=== PATIENT | male | born 1965 | race Caucasian/White ===

== ENCOUNTER 2017-11-10 06:47 | Day surgery (SDC) | payer OTHER ==
[~2017-11-10] VITALS: Ht 160 cm; Wt 64.4 kg
[2017-11-10] MEDS ORDERED: CLINDAMYCIN 600 MG in DEXTROSE 5% 50 ML IV SCH (07:45)
[2017-11-10] MEDS ORDERED: CLINDAMYCIN PHOS 600MG/D5W PM 50 ML IV SCH (07:50)
[2017-11-10] MEDS ORDERED: CITA40TA13 PO (08:08)
[2017-11-10] MEDS ORDERED: PROPOFOL 200 MG/20 ML VIAL IV ONE (08:34)
[2017-11-10] MEDS ORDERED: BUPIVACAINE-MPF 0.25% 30 ML VIAL INJ ONE (08:36)
[2017-11-10] MEDS ORDERED: LIDOCAINE MPF 1% - **ER/OR** 5 ML ONE (08:36)
[2017-11-10] MEDS ORDERED: fentaNYL 0.05 MG/ML VIAL ONE (08:39)
[2017-11-10] MEDS ORDERED: MIDAZOLAM 2 MG/2 ML VIAL ONE (08:39)
[2017-11-10] MEDS ORDERED: HYDROmorphone 1 MG/ML AMP IVP PRN ×2 (08:50→09:50)
[2017-11-10] MEDS ORDERED: ONDANSETRON 4 MG/2 ML VIAL IVP PRN (08:50)
[2017-11-10] MEDS ORDERED: ONDANSETRON 4 MG/2 ML VIAL IV PRN (09:50)
[2017-11-10] MEDS ORDERED: MORPHINE SULFATE 4 MG/ML SYR IV PRN (09:50)
[2017-11-10] MEDS ORDERED: MORPHINE SULFATE 2 MG/ML SYR IVP PRN (09:50)
[2017-11-10] MEDS ORDERED: HYDROcodone/APAP 5/325 MG 1 TAB TAB PO PRN (09:50)
[2017-11-10] MEDS ORDERED: ACETAMINOPHEN 325 MG TAB PO PRN (09:50)
== END 2017-11-10 10:45 | disposition home or self-care (01) ==
LOC: MMU 06:47 → MDS 06:47
PROVIDERS: ATTEND Surgery
DX: R59.0 Localized enlarged lymph nodes (principal); F41.9 Anxiety disorder, unspecified; M19.90 Unspecified osteoarthritis, unspecified site; F32.9 Major depressive disorder, single episode, unspecified; E66.9 Obesity, unspecified; I12.9 Hypertensive chronic kidney disease with stage 1 through stage 4 chronic kidney disease, or unspecified chronic kidney disease; N18.9 Chronic kidney disease, unspecified; I25.119 Atherosclerotic heart disease of native coronary artery with unspecified angina pectoris; E11.22 Type 2 diabetes mellitus with diabetic chronic kidney disease; I63.9 Cerebral infarction, unspecified; G47.33 Obstructive sleep apnea (adult) (pediatric); D69.6 Thrombocytopenia, unspecified; K21.9 Gastro-esophageal reflux disease without esophagitis; D64.9 Anemia, unspecified; J45.909 Unspecified asthma, uncomplicated; E04.9 Nontoxic goiter, unspecified; F17.210 Nicotine dependence, cigarettes, uncomplicated; Z79.899 Other long term (current) drug therapy
CPT/HCPCS: 38525; 71045; 93005; J2001; J2250; J2704; J3010; J3490; J7120

== ENCOUNTER 2017-12-27 12:49 | Inpatient (IN) | payer OTHER ==
[~2017-12-27] VITALS: Ht 167.6 cm; Wt 54.4 kg
--- NOTE | 2017-12-27 00:30 | NUR ---
V/S FOLLOWS T 100.2 P 102 R 20 B/P 112/67 O2 93 ON R/A
[~2017-12-27 12:49] MED LIST: CITA40TA13 PO
--- NOTE | 2017-12-27 12:49 | NUR ---
Patient BIBA BLS, transferred to bed 1. RN evaluating patient at bedside.
[2017-12-27 12:50] VITALS: BP 132/80
--- NOTE | 2017-12-27 12:52 | NUR ---
52 yo m biba w/ c/o generalized body "rash"/scabbing x 2.5 weeks. Scabbing noted to bilateral legs and arms. skin is very tight/taunt. pt denies any other symptoms. denies drug use. reports the rash/scabs are itchy. Per EMS report, pt came from home and was sitting in front of his house. EMS reports that they saw small, black bugs crawling on pt skin. pt aaox4. gcs 15. cms intact. rr even and unlabored. lungs bilaterally clear. abd soft, non-tender. er md notified. pt needs met. safety precautions in place. will continue to monitor.
[2017-12-27] MEDS ORDERED: NACL 0.9% 1,000 ML IV ONE (13:00)
[2017-12-27 13:33] LABS: HEMATOCRIT 35.9 % (36-52); MEAN CORPUSCULAR HEMOGLOBIN 29 pg (27-31); MEAN CORPUSCULAR HGB CONC 33 g/dL (33-37); MEAN CORPUSCULAR VOLUME 85.7 fL (80-94); PLATELET COUNT (AUTO) 125 K/uL (140-450); RED BLOOD CELL COUNT(AUTO) 4.19 MIL/uL (4.20-6.10); RED CELL DISTRIBUTION WIDTH 16.8 % (11.6-13.7); WHITE BLOOD COUNT (AUTO) 10.2 K/uL (4.8-10.8)
[2017-12-27 13:43] LABS: ANION GAP 14.6 (8-16); BASOPHILS % (MANUAL) 0 % (0-2); CARBON DIOXIDE 24.4 mmol/L (21-32); CHLORIDE 95 mmol/L (98-107); CREATININE 1.2 mg/dL (0.7-1.3); EOSINOPHILS % (MANUAL) 0 % (0-4); GFR ARICAN-AMERICAN 81 mL/min (>90); GLUCOSE 80 mg/dL (74-106); LYMPHOCYTES % (MANUAL) 1 % (20-46); METAMYELOCYTES % 1 % (0-0); MONOCYTES % (MANUAL) 9 % (5-12); SODIUM SERUM 129 mmol/L (136-145); UREA NITROGEN, BLOOD 35 mg/dL (7-18)
[2017-12-27 13:49] LABS: ASPARTATE AMINOTRANSFERASE 61 U/L (15-37); TOTAL BILIRUBIN 1.3 mg/dL (0.0-1.0)
--- NOTE | 2017-12-27 13:50 | NUR ---
pt encouraged to use the urinal at this time to collect urine specimen. Pt reports that he willl provide sample at this time. will re-evaluate.
[2017-12-27 13:54] LABS: ALBUMIN 1.7 g/dL (3.4-5.0)
[2017-12-27] MEDS ORDERED: ONDANSETRON 4 MG/2 ML VIAL IVP PRN (14:20)
[2017-12-27] MEDS ORDERED: ACETAMINOPHEN 325 MG TAB PO PRN (14:20)
[2017-12-27] MEDS ORDERED: TRAM50TA1 PO (14:26)
--- NOTE | 2017-12-27 14:30 | NUR ---
pt lying in hospital [facility] at this time. vss. rr even and unlabored. safety precautions in place. pt still has not provided urine at this time. er md notified. pt needs met. will continue to monitor.
[2017-12-27] MEDS ORDERED: traMADol 50 MG TAB PO PRN (15:10)
[2017-12-27] MEDS: NACL 0.9% 1,000 ML IV SCH (15:20)
--- NOTE | 2017-12-27 15:20 | NUR ---
Patient will be admitted to care of [facility]. Admited to Med-surg. Will go to room 117. Belongings list completed. Report to JE Weaver.
--- NOTE | 2017-12-27 15:30 | NUR ---
PATIENT BROUGHT TO UNIT VIA GURNEY FROM THE ER. RECEIVED BEDSIDE REPORT. NEEDED TO HELP TRANSFER PATIENT FROM GURNEY TO BED. PATIENT IS AAOX4, NO SIGNS AND SYMPTOMS OF ACUTE DISTRESS NOTED AT THIS TIME. HAS MULTIPLE LESIONS ALL OVER HIS BODY. HAS IV TO THE RIGHT WRIST 22G, SALINE LOCK AT THIS TIME. ORIENTED PATIENT TO THE ROOM, EXPLAINED CALL LIGHT. PATIENT VERBALIZED UNDERSTANDING. WILL FOLLOW THROUGH WITH ADMIT ORDERS. WILL CONTINUE TO MONITOR. BED IN LOWEST POSITION, SIDE RAILS UP X2, CALL LIGHT WITHIN REACH.
[2017-12-27 16:00] VITALS: BP 127/80
--- NOTE | 2017-12-27 16:55 | NUR ---
PATIENT TAKEN TO GET A CT DONE.
--- NOTE | 2017-12-27 17:20 | NUR ---
PATIENT BACK FROM CT.
--- NOTE | 2017-12-27 19:30 | NUR ---
RECEIVED REPORT FROM CRISS WOOTEN DAYSHIFT NURSE FOR CONTINUITY OF CARE. PT ON CONTACT PRECAUTIONS DUE TO BODY RASH. PT SITTING UP IN LOW BED, WITH CALL GARDNER IN REACH. PT IS AOX2 . HE HAS MULTIPLE SMALL OPEN AND CLOSED SCABS ALL OVER HIS BODY. HE HAS 2 IV SITES 1 IN LEFT HAND AT 22G AND ONE IN LEFT AC AT 18 GAUGE. WHICH IS SALINE LOCKED. IV SITE ON LEFT HAND WHICH IS RUNNING NACL AT 75MLS AN HOUR. SITE FLUSHED PATENT. FAMILY AT BEDSIDE. DAUGHTER REQUESTS SS INVOLVED IN HER FATHER'S LIVING SITUATION, SHE ALSO WOULD LIKE THE PAPERWORK FOR POA OVER HER FATHER.
--- NOTE | 2017-12-27 19:30 | NUR ---
ENDORSED PATIENT TO SCAN COORDINATOR RN FOR CONTINUITY OF CARE. PATIENT IN STABLE CONDITION.
[2017-12-27 20:00] VITALS: BP 111/61
--- NOTE | 2017-12-27 20:00 | NUR ---
CHEST X- RAY DONE AT BEDSIDE.
[2017-12-27 20:06] LABS: PROTHROMBIN TIME 12.8 secs (10.8-13.4)
--- NOTE | 2017-12-27 20:30 | NUR ---
V/S FOLLOWS T 98.3 P 97 R 20 B/P 111/61 02 97% ON R/A.
[2017-12-27 20:49] LABS: TOTAL BILIRUBIN 1.3 mg/dL (0.0-1.0)
[2017-12-27 20:50] LABS: ALBUMIN 1.8 g/dL (3.4-5.0); BILIRUBIN,DIRECT 0.8 mg/dL (0.0-0.3)
[2017-12-27] MEDS: MORPHINE SULFATE 2 MG/ML SYR IVP PRN (21:14)
--- NOTE | 2017-12-27 21:30 | NUR ---
PT C/O OF ITCHINESS AND PAIN FROM THE RASH. PT RECEIVED PRN MORPHINE IVP 1MG FOR PAIN AND BENADRYL 25 MG P.O FOR ITCHINESS
[2017-12-27] MEDS ORDERED: DOXYCYCLINE 100 MG CAP PO SCH (22:00)
--- NOTE | 2017-12-28 01:30 | NUR ---
PT ABLE TO GIVE CLEAN CATCH SAMPLE OF URINE SAMPLE FOR PENDING TESTS. URINE COLLECTED AND SENT TO LAB
[2017-12-28 02:20] LABS: APPEARANCE,URINE CLEAR (CLEAR); BILIRUBIN,URINE 1+ (NEGATIVE); BLOOD, URINE NEGATIVE (NEGATIVE); COLOR,URINE YELLOW (YELLOW); LEUKOCYTE ESTERASE ,URINE NEGATIVE (NEGATIVE); NITRITE, URINE NEGATIVE (NEGATIVE); UGLUCOSE NEGATIVE (NEGATIVE)
[2017-12-28 02:31] LABS: BARBITURATE, URINE NEG. ng/ml (NEG <=200); BENZODIAZEPINE, URINE NEG. ng/mL (NEG <=200); CANNABINOID, URINE NEG. ng/mL (NEG <=50); COCAINE, URINE NEG. ng/mL (NEG <=300); OPIATE, URINE NEG. ng/mL (NEG <=2000); PHENCYCLIDINE SCREEN,URINE NEG. ng/mL (NEG <=25)
[2017-12-28] MEDS: NACL 0.9% 1,000 ML IV SCH ×3 (04:40→18:00)
--- NOTE | 2017-12-28 05:01 | NUR ---
PT GETTING LAB DRAWS AT BEDSIDE
[2017-12-28 05:23] LABS: RBC,URINE 0-5 (RARE) /HPF (0-5); WBC,URINE 0-5 (RARE) /HPF (0-5)
[2017-12-28 05:51] LABS: HEMATOCRIT 32.8 % (36-52); MEAN CORPUSCULAR HEMOGLOBIN 29 pg (27-31); MEAN CORPUSCULAR HGB CONC 34 g/dL (33-37); MEAN CORPUSCULAR VOLUME 85.1 fL (80-94); PLATELET COUNT (AUTO) 122 K/uL (140-450); RED BLOOD CELL COUNT(AUTO) 3.86 MIL/uL (4.20-6.10); RED CELL DISTRIBUTION WIDTH 16.9 % (11.6-13.7); WHITE BLOOD COUNT (AUTO) 7.6 K/uL (4.8-10.8)
[2017-12-28] MEDS: MORPHINE SULFATE 2 MG/ML SYR IVP PRN ×2 (06:09→10:15)
--- NOTE | 2017-12-28 06:14 | NUR ---
PT C/O 9/10 PAIN IN STOMACH A ND GENERALIZED BODY PAIN. PT GIVEN PRN MORPHINE IVP. CURRENT V/S T 97.4 P 100 R 20/P 98/61. WILL CONTINUE TO MONITOR RESIDENT FOR EFFECT.
[2017-12-28 06:31] LABS: ALBUMIN 1.3 g/dL (3.4-5.0); ANION GAP 10.9 (8-16); CARBON DIOXIDE 20.2 mmol/L (21-32); CREATININE 0.8 mg/dL (0.7-1.3); POTASSIUM 4.1 mmol/L (3.5-5.1); TOTAL BILIRUBIN 0.9 mg/dL (0.0-1.0)
--- NOTE | 2017-12-28 06:40 | NUR ---
CRITICAL LAB REPORTED BY JASON IN THE LAB BUN [address] 4.8 [address] [facility]ERRING [facility] CALLED X2 REGARDING LAB VALUES OF BUN AND CALCIUM, NO ONE ANSWERED WILL ENDORSE TO NEXT SHIFT TO FOLLOW UP.
[2017-12-28 07:04] LABS: LYMPHOCYTES % (MANUAL) 15 % (20-46); MONOCYTES % (MANUAL) 13 % (5-12)
--- NOTE | 2017-12-28 07:15 | NUR ---
ENDORSED CARE AT BEDSIDE CHANGE OF SHIFT REPORT GIVEN TO SOFIA RN DAYSHIFT NURSE PT IN STABLE CONDITION
--- NOTE | 2017-12-28 07:16 | NUR ---
RECEIVED REPORT FROM PREPARATION SUPERVISOR NURSE. PATIENT LYING DOWN IN BED SLEEPING, AROUSABLE BY VOICE. NO DISTRESS NOTED. PAIN WITHIN TOLERABLE AT THIS TIME. AAOX4, CALM, COOPERATIVE, SKIN COLOR APPROPRIATE TO ETHNICITY, WARM TO TOUCH. HAS MULTIPLE SKIN LESIONS/RASH NOTED THROUGHOUT BODY. LUNGS CTA ON ALL LOBES. ABDOMEN SOFT, NON-DISTENDED. IV SITE INTACT, PATENT, AND INFUSING IVF PER MD ORDERS. REVIEWED PLAN OF CARE WITH PATIENT. PATIENT VERBALIZED UNDERSTANDING. SAFETY MEASURES IN PLACE, CALL LIGHT WITHIN REACH. WILL CONTINUE TO MONITOR.
[2017-12-28 08:00] VITALS: BP 108/61
[2017-12-28] MEDS ORDERED: DOXYCYCLINE 100 MG CAP PO SCH (09:00)
[2017-12-28] MEDS ORDERED: ENOXAPARIN 40 MG/0.4 ML SYR SUBQ SCH (09:00)
--- NOTE | 2017-12-28 09:20 | NUR ---
PATIENT HAS BEEN SCREENED AND CATEGORIZED HIGH NUTRITION RISK. PATIENT WILL BE SEEN WITHIN 1-2 DAYS OF ADMISSION. 12/28/17 12/29/[address]
--- NOTE | 2017-12-28 10:32 | NUR ---
PATIENT SITTING IN BED WITH COMPLAINTS OF GENERALIZED PAIN DUE TO RASHES THROUGHOUT BODY, MORPHINE GIVEN PER MD ORDERS. SCHEDULED ANTIBIOTICS DUE GIVEN. ENOXPARIN NOT GIVEN AT THIS TIME DUE TO LOW PLATELET AND HIGH PTT. WOUND CARE NURSE KEYA AT BEDSIDE PERFORMING EVALUATION. SAFETY MEASURES IN PLACE, CALL LIGHT WITHIN REACH. WILL CONTINUE TO MONITOR.
--- NOTE | 2017-12-28 11:27 | NUR ---
PATIENT CONTINUES TO COMPLAIN OF GENERALIZED PAIN, TRAMADOL PO GIVEN PER MD ORDERS. SAFETY MEASURES IN PLACE, CALL LIGHT WITHIN REACH. WILL CONTINUE TO MONITOR.
--- NOTE | 2017-12-28 11:30 | NUR ---
WOUND CARE EVALUATION NOTES: REASON FOR EVALUATION: MULTIPLE RASHES AND DRY LESIONS SKIN ASSESSMENT DONE ON THIS 52 Y/O MALE PATIENT ADMITTED TO [facility], WITH INITIAL DIAGNOSIS OF GENERAL WEAKNESS. PAST HX INCLUDES DEPRESSION, ANXIETY AND RASHES WITH SELF PICKING BEHAVIOR. ALL ABOVE INFORMATION OBTAINED FROM ADMISSION I&D. LABS ARE WBC 7.6, H/H 11.0/32.8, GLUCOSE 67 AND ALBUMIN 1.3. PATIENT IS AWAKE, ALERT, AND ABLE TO FOLLOW COMMANDS. PT. DENIES OF ITCHINESS, C/O HEADACHE AND FATIGUE AT TIMES BUT NOT NOW. SKIN WARM TO TOUCH, SKIN IS VERY THIN, SKIN TO BONE CONDITION. BLE NO EDEMA, NO HAIR GROWTH AND BILATERAL PEDAL PULSES PRESENT. PLAN OF CARE DISCUSSED WITH PT AND PRIMARY NURSE. PT ABLE TO VERBALIZE UNDERSTANDING. BROTHER AND SISTER VISIT AT BED SIDE AND INFORM OF TREATMENT PLAN WITH AUTHORIZATION BY PATIENT. INTEGUMENTARY: -MULTIPLE RASHES AND DRY LESIONS FROM SCALP TO SOLE INCLUDES GENETIAL AREA WITH LARGEST DRY LESION TO POSTERIOR RIGHT SCAPULA 3X2 CM, THIN DRY LESION OPENED SKIN NOTICED -BILATERAL LE MULTIPLE DARK BROWN SCABS, TERRENCE-SCABS ERYTHEMA, SKIN INTACT -BILATERAL HEELS THIN LAYER OF CALLUS RECOMMENDATIONS: -CONTINUE ISOLATION PRECAUTION -PENDING RPR AND HSV RESULTS -CONTINUE IV/PO ANTIBIOTIC TREATMENT -APPLY HYDRAGUARD TO MULTIPLE RASHES AND DRY LESIONS FROM SCALP TO SOLE (WHOLE BODY) AND PERINEAL BIDWC AND PRN IF SOILING AND LEAVE IT OPEN TO AIR -PAINT BILATERAL LE MULTIPLE DARK BROWN SCABS WITH BETADINE SOLUTION BID AND LEAVE IT OPEN TO AIR. -CONTINUE TO MONITOR TERRENCE-SCABS ERYTHEMA AND REPORT TO MD IF WORSEN CONDITION NOTICE -TURN AND REPOSITION PATIENT Q2H TO LEFT AND RIGHT SIDE ONLY TO OFFLOAD SACRALCOCCYX AND BILATERAL HEELS -ASSESS AND MONITOR SKIN CONDITION DURING POSITION CHANGE, PLEASE PAY ATTENTION TO R/L SCAPULA -OFFLOAD BILATERAL HEELS BY PLACING PILLOWS UNDER CALVES AT ALL TIMES, UNLESS OTHERWISE CONTRAINDICATED -PRESSURE REDISTRIBUTION SURFACE THERAPY RECOMMENDATIONS DISCUSSED WITH PRIMARY RN WILL FOLLOW UP PATIENT Q 7 -10 DAYS AND PRN. PLEASE CONTACT WOUND CARE NURSE FOR ANY QUESTION OR CHANGES IN WOUND CONDITION
--- NOTE | 2017-12-28 11:58 | NUR ---
CM NOTE INITIAL REVIEW FAXED TO [facility] [phone] YAM[place] PH# [phone] [facility] PH# [phone]
[2017-12-28 13:50] LABS: RAPID PLASMA REAGIN NON-REACTIVE (Non Reactiv)
[2017-12-28] MEDS ORDERED: HYDRAGUARD CREAM TP PRN (14:10)
--- NOTE | 2017-12-28 14:54 | NUR ---
DR. HERRING AT BEDSIDE REVIEWING PLAN OF CARE WITH PATIENT. PLAN IS TO TRANSFER PATIENT TO [facility] FOR CHEMOTHERAPY DUE TO LYMPHOMA. SAFETY MEASURES IN PLACE, CALL LIGHT WITHIN REACH. WILL CONTINUE TO MONITOR.
--- NOTE | 2017-12-28 15:16 | NUR ---
CM NOTE RECEIVED ORDER TO TRANSFER TO [facility] FOR CHEMO. PER [facility] NANCY OVALLE, THE ASSIGNED [facility] CM IS [facility] PH# [phone]. FAXED [facility] [phone] THE ORDER AND SPOKE WITH [facility] NANCY ALEJANDRO AND SHE SAID TO GO AHEAD AND FAX ORDER TO [facility] AND I ALSO GAVE [facility] NANCY ALEJANDRO THE NUMBER TO THE NURSING STATION WHERE PATIENT IS IN CASE THE TRANSFER HAPPENS AT A LATER TIME. SPOKE WITH [facility] MASTER IN [place] PH# [phone] WHO SAID TO CONTACT THEIR ADMITTING DEPT IF WE WANT TO TRANSFER A PATIENT. SPOKE WITH [facility] ADMITTING DEPT PH# [phone] AND SHE REQUESTED THE ORDER AND CLINICAL PACKET TO BE FAXED TO THEM. FAXED ORDER AND CLINICAL PACKET TO [facility] FAX# [phone]. I ALSO GAVE [facility] OF [facility] ADMITTING DEPT, THE NUMBER OF THE NURSING STATION WHERE PATIENT IS, THE NUMBER OF DR. HERRING AND DR. QUINONES FOR DOCTOR TO DOCTOR REPORT AND THE NUMBER OF [facility] NANCY ALEJANDRO. [facility] NANCY ALEJANDRO AND CHARGE NURSE FACUNDO CARR
[2017-12-28] MEDS: MORPHINE SULFATE 4 MG/ML SYR IVP PRN ×2 (15:48→19:57)
--- NOTE | 2017-12-28 15:50 | NUR ---
PATIENT COMPLAINS OF GENERALIZED PAIN, MORPHINE GIVEN PER MD ORDERS. SAFETY MEASURES IN PLACE, CALL LIGHT WITHIN REACH. WILL CONTINUE TO MONITOR.
[2017-12-28 16:00] VITALS: BP 114/80
--- NOTE | 2017-12-28 16:02 | NUR ---
IE CALLED AND GAVE AUTHORIZATION NUMBERS FOR TRANSFER. HOSPITAL TRANSFER AUTHORIZATION #: [id number] [facility] AUTHORIZATION #: [id number]. WILL CONTINUE TO MONITOR.
--- NOTE | 2017-12-28 16:05 | NUR ---
12/28/17 RD INITIAL ASSESSMENT COMPLETED PLEASE REFER TO NUTRITION ASSESSMENT UNDER CARE ACTIVITY FOR ESTIMATED NUTRITIONAL NEEDS. CONTINUE REGULAR DIET TOLERATED 2. RECOMMEND STRAWBERRY ENSURE WITH MEALS TID 3. WHEN PO INTAKE MEET OR EXCEED 75%, CONSIDER 2GM SODIUM DIET WITH STRAWBERRY ENSURE WITH MEALS TID 4. IF PT UNABLE TO MAINTAIN ADEQUATE ORAL INTAKE FROM FOOD AND SUPPLEMENTS, RECOMMEND NG TUBE FEED WITH JEVITY 1.2 @ GOAL RATE 70 ML/H AND 150 ML H20 FLUSH Q4D. INITIATE AT 10ML/H AND INCREASE 10ML QH. THIS WILL PROVIDE CALORIES, 93.24 GM PROTIEN, AND 1955 ML FLUID 5. PROVIDED PT AND FAMILY NUTRITION EDUCATION ON CIRRHOSIS AND ENTERAL TUBE FEED 6. RD TO FOLLOW-UP 2-3 DAYS, HIGH RISK BETTINA FLETCHER RD
--- NOTE | 2017-12-28 18:17 | NUR ---
PATIENT LYING IN BED WITH DINNER TRAY IN FRONT. NO DISTRESS NOTED. COMPLAINS OF ITCHING, BENADRYL GIVEN PER ORDERS. CONDITION UNCHANGED. SAFETY MEASURES IN PLACE, CALL LIGHT WITHIN REACH. WILL CONTINUE TO MONITOR
--- NOTE | 2017-12-28 19:27 | NUR ---
GAVE REPORT TO FISH PACKER NURSE FOR CONTINUITY OF CARE. PATIENT IN STABLE CONDITION.
--- NOTE | 2017-12-28 19:28 | NUR ---
REPORT RECEIVED FROM AM SHIFT AT BEDSIDE. PT IN STABLE CONDITION. AAOX4. IV SITE PATENT AND INTACT. LUNGS CLEAR BILATERALLY. SKIN WARM, DRY, NOT INTACT DUE TO RASHES AND LESIONS ALL OVER HIS BODY. BED LOCKED IN LOW POSITION. CALL GARDNER WITHIN REACH.
--- NOTE | 2017-12-28 19:57 | NUR ---
MORPHINE GIVEN FOR PAIN 12/22. PT TOLERATED WELL.
[2017-12-28 20:52] VITALS: BP 95/63
--- NOTE | 2017-12-28 21:40 | NUR ---
CALLED IN REPORT TO [facility] TO THE ONCOLOGY UNIT. SBAR REPORT CALLED INTO HERON WOOTEN FOR CONTINUITY OF CARE.
--- NOTE | 2017-12-28 22:00 | NUR ---
[facility] ARRIVED TO PICK PT UP. PT ABLE TO AMBULATE WITH ASSISTANCE TO THE [facility].
[2017-12-29] MEDS ORDERED: HYDRAGUARD CREAM TP SCH (01:00)
[2017-12-29] MEDS ORDERED: NACL 0.9% IRR 250 ML BOTTLE IR SCH (01:00)
== END 2017-12-28 22:25 | disposition short-term general hospital (02) | DRG 691 ==
LOC: MED 12:49 → MTU 14:18
PROVIDERS: ADMIT Hospitalist; ATTEND Hospitalist
DX: C91.50 Adult T-cell lymphoma/leukemia (HTLV-1-associated) not having achieved remission (principal); E43 Unspecified severe protein-calorie malnutrition; D69.6 Thrombocytopenia, unspecified; E87.1 Hypo-osmolality and hyponatremia; F41.9 Anxiety disorder, unspecified; F32.9 Major depressive disorder, single episode, unspecified; A53.9 Syphilis, unspecified; Z87.891 Personal history of nicotine dependence; Z88.0 Allergy status to penicillin; R74.0 Nonspecific elevation of levels of transaminase and lactic acid dehydrogenase [LDH]; R59.1 Generalized enlarged lymph nodes
CPT/HCPCS: 36415; 71045; 71260; 80053; 80076; 80305; 81001; 83605; 85025; 85610; 85651; 85730; 86592; 87040; 87081; 87086; 87529; 96360; 99285; C1758; G0482; J0696; J2270; J7030; J7060; Q0092; Q0163